=== PATIENT | male | born 1955 | race Caucasian/White ===

== ENCOUNTER → 2021-04-21 | Outpatient (CLI) | payer MEDICARE, BC ==
[~2021-04-21] MED LIST: CLAR10CA3 PO; ECOT81TA5 PO
== END ==
LOC: M LABSMTC 09:15
PROVIDERS: ATTEND Anesthesiology
DX: Z01.812 Encounter for preprocedural laboratory examination (principal); Z20.822 Contact with and (suspected) exposure to COVID-19

== ENCOUNTER 2021-04-26 10:38 | Day surgery (SDC) | payer MEDICARE, BC ==
[~2021-04-26] VITALS: Ht 175.3 cm; Wt 93.4 kg
[2021-04-26] MEDS ORDERED: propofoL 200 MG/20 ML VIAL As Ordered ONE ×2 (10:54→12:08)
[2021-04-26] MEDS ORDERED: LIDOCAINE 2% 100MG/5ML SDV (FOR ANES.) As Ordered ONE (10:54)
--- NOTE | 2021-04-26 12:27 | ROOR ---
Patient Name: Antony Perez Procedure Date: 04/26/2021 11:46 AM Date of : 1955 Age: 65 Room: [facility] Gender: Male Note Status: Finalized Procedure: Colonoscopy Indications: Screening for colorectal malignant neoplasm Providers: Paulino Estevez Jr, MD Referring MD: Lea Conte DO Requesting Provider: Medicines: Propofol per Anesthesia Complications: No immediate complications. Procedure: Pre-Anesthesia Assessment: - Prior to the procedure, a History and Physical was performed, and patient medications and allergies were reviewed. The patient is competent. The risks and benefits of the procedure and the sedation options and risks were discussed with the patient. All questions were answered and informed consent was obtained. Patient identification and proposed procedure were verified by the physician and the nurse in the pre-procedure area and in the procedure room. Mental Status Examination: alert and oriented. Airway Examination: normal oropharyngeal airway and neck mobility. Respiratory Examination: clear to auscultation. CV Examination: normal. ASA Grade Assessment: II - A patient with mild systemic disease. After reviewing the risks and benefits, the patient was deemed in satisfactory condition to undergo the procedure. The anesthesia plan was to use moderate sedation / analgesia (conscious sedation). Immediately prior to administration of medications, the patient was re-assessed for adequacy to receive sedatives. The heart rate, respiratory rate, oxygen saturations, blood pressure, adequacy of pulmonary ventilation, and response to care were monitored throughout the procedure. The physical status of the patient was re-assessed after the procedure. The Colonoscope was introduced through the anus and advanced to the cecum, identified by appendiceal orifice and ileocecal valve. The colonoscopy was performed without difficulty. The patient tolerated the procedure well. The quality of the bowel preparation was adequate. Findings: The sigmoid colon, cecum, appendiceal orifice and ileocecal valve appeared normal. A small polyp was found in the rectum transverse colon. The polyp was removed with a hot snare. Resection was complete, but the polyp tissue was only partially retrieved. Four polyps were found in the transverse colon and ascending colon. The polyps were medium in size. These polyps were removed with a hot snare. Resection was complete, but the polyp tissue was only partially retrieved. A polyp was found in the descending colon. The polyp was semi-pedunculated. The polyp was removed with a hot snare. Resection was complete, but the polyp tissue was only partially retrieved. To close a defect after polypectomy, one hemostatic clip was successfully placed. There was no bleeding at the end of the procedure. Impression: - The sigmoid colon, cecum, appendiceal orifice and ileocecal valve are normal. - One small polyp in the rectum in the transverse colon, removed with a hot snare. Complete resection. Partial retrieval. - Four medium polyps in the transverse colon and in the ascending colon, removed with a hot snare. Complete resection. Partial retrieval. - One polyp in the descending colon, removed with a hot snare. Complete resection. Partial retrieval. Recommendation: - Discharge patient to home (ambulatory). - Repeat colonoscopy in 6 months for retreatment. Procedure Code(s): --- Professional --- 94138, Colonoscopy, flexible; with removal of tumor(s), polyp(s), or other lesion(s) by snare technique Diagnosis Code(s): --- Professional --- Z12.11, Encounter for screening for malignant neoplasm of colon K62.1, Rectal polyp K63.5, Polyp of colon CPT copyright 2019 [employer]. All rights reserved. The codes documented in this report are preliminary and upon psychiatric nursing assistant review may be revised to meet current compliance requirements. Paulino Estevez MD Paulino Estevez Jr, MD 04/26/2021 12:26:42 PM Electronically signed by Paulino Estevez Jr, MD Number of Addenda: 0 Note Initiated On: 04/26/2021 11:46 AM Estimated Blood Loss: Estimated blood loss: none.
[2021-04-26 12:50] VITALS: BP 143/83
== END 2021-04-26 12:51 | disposition home or self-care (01) ==
LOC: M OPP 10:38
PROVIDERS: ATTEND Surgery
DX: D12.6 Benign neoplasm of colon, unspecified (principal); K62.1 Rectal polyp; R19.5 Other fecal abnormalities; Z79.82 Long term (current) use of aspirin

== ENCOUNTER 2022-01-03 06:37 | Day surgery (SDC) | payer MEDICARE, BC ==
[~2022-01-03] VITALS: Ht 175.3 cm; Wt 93.6 kg
[~2022-01-03 06:37] MED LIST changes: +LIDOCAINE 2% 100MG/5ML SDV (FOR ANES.) As Ordered ONE; +METF500T13; +NS 1,000 ML IV ONE; +propofoL 200 MG/20 ML VIAL As Ordered ONE
[2022-01-03 08:11] VITALS: BP 153/72
== END 2022-01-03 08:14 | disposition home or self-care (01) ==
LOC: M OPP 06:37
PROVIDERS: ATTEND Surgery
DX: K63.5 Polyp of colon (principal); Z86.010 Personal history of colon polyps; Z09 Encounter for follow-up examination after completed treatment for conditions other than malignant neoplasm; E11.9 Type 2 diabetes mellitus without complications; Z79.52 Long term (current) use of systemic steroids; Z79.82 Long term (current) use of aspirin; Z79.84 Long term (current) use of oral hypoglycemic drugs

== ENCOUNTER → 2022-01-16 | Outpatient (REF) | payer MEDICARE, BC ==
[~2022-01-16] MED LIST changes: -LIDOCAINE 2% 100MG/5ML SDV (FOR ANES.) As Ordered ONE; -NS 1,000 ML IV ONE; -propofoL 200 MG/20 ML VIAL As Ordered ONE
== END ==
LOC: M LAB REF 09:18
PROVIDERS: ATTEND Surgery
DX: L82.1 Other seborrheic keratosis (principal)

== ENCOUNTER → 2025-05-06 | Outpatient (CLI) | payer MEDICARE, BC | LOC: M CARPUL 15:06 | PROVIDERS: ATTEND Registered Nurse | DX: Z01.810 Encounter for preprocedural cardiovascular examination (principal) ==

== ENCOUNTER 2025-06-14 10:32 | Emergency (ER) | payer MEDICARE, BC ==
[~2025-06-14] VITALS: Ht 172.7 cm; Wt 80.0 kg
[2025-06-14 12:24] LABS: BASO # 0.0 10^3/uL (0.0-0.2); BASO % 0.1 % (0.0-1.0); EOS # 0.0 10^3/uL (0.0-0.5); EOS % 0.1 % (0.0-3.0); LYMPH # 1.1 10^3/uL (1.5-5.0); LYMPH % 12.5 % (24.0-44.0); MONO # 0.5 10^3/uL (0.0-0.8); MONO % 6.3 % (2.0-8.0); NEUTROPHILS # 6.9 10^3/uL (1.5-8.5); NEUTROPHILS % 80.6 % (36.0-66.0); PLATELET COUNT, AUTOMATED 183 10^3/uL (150-450)
[2025-06-14] MEDS: ONDANSETRON 4MG 2ML VIAL IV ONE ×2 (12:26→16:40)
[2025-06-14] MEDS: NS 500 ML IV ONE ×2 (12:26→14:20)
[2025-06-14] MEDS: MECLIZINE 25 MG TABLET PO ONE (12:26)
[2025-06-14 12:56] LABS: CALCIUM LEVEL 8.3 MG/DL (8.3-10.6); CARBON DIOXIDE LEVEL 22 MMOL/L (20-31); CHLORIDE LEVEL 106 MMOL/L (98-107); CREATININE FOR GFR 0.58 MG/DL (0.70-1.30); GLOMERULAR FILTRATION RATE > 90.0 (>42); POTASSIUM SERUM 4.7 MMOL/L (3.5-5.1); SODIUM LEVEL 136 MMOL/L (136-145)
[2025-06-14] MEDS ORDERED: ENOX40IN3 (13:12)
[2025-06-14] MEDS ORDERED: OXYC-517 (13:12)
[2025-06-14] MEDS ORDERED: ACET1TAB55 PO (13:12)
[2025-06-14] MEDS ORDERED: INSU100I60 (13:12)
[2025-06-14] MEDS ORDERED: ONDA-83 (13:12)
[2025-06-14] MEDS ORDERED: PANT40TA29 (13:12)
[2025-06-14] MEDS ORDERED: METH-1164 (13:12)
[2025-06-14 18:00] VITALS: BP 122/64; O2SAT 96
[2025-06-14 18:03] VITALS: TEMP 97.6
== END 2025-06-14 18:10 | disposition short-term general hospital (02) ==
LOC: M ED 10:32
DX: K91.0 Vomiting following gastrointestinal surgery (principal); E11.9 Type 2 diabetes mellitus without complications; I10 Essential (primary) hypertension; C25.9 Malignant neoplasm of pancreas, unspecified; Z91.09 Other allergy status, other than to drugs and biological substances; Z79.1 Long term (current) use of non-steroidal anti-inflammatories (NSAID); Z79.4 Long term (current) use of insulin; Z79.84 Long term (current) use of oral hypoglycemic drugs; Z79.899 Other long term (current) drug therapy
CPT/HCPCS: 80048; 85025; 93005; 96361; 96374; 96375; 99285; J2405